=== PATIENT | female | born 1970 | race African-American/Black ===

== ENCOUNTER 2022-08-28 09:34 | Inpatient (IN) ==
[2022-08-28] MEDS ORDERED: ONDANSETRON 4 MG/2 ML VIAL IV STA (11:16)
[2022-08-28] MEDS ORDERED: HYDROmorphone 1 MG/1 ML SYRINGE IV STA (11:16)
[2022-08-28] MEDS ORDERED: SODIUM CHLORIDE 0.9% 1,000 ML IV STA (11:16)
[2022-08-28 11:42] LABS: Basophils % 0.2 % (0.0-0.8); Hematocrit 41.5 VOL% (35.7-47.0); Hemoglobin 13.6 GM/DL (12.0-16.0); Immature Granulocytes % 0.3 %; Immature Granulocytes Absolute 0.06 #; Lymphocytes # 1.9 10*3/uL (1.4-4.0); Lymphocytes % 10.8 % (21.3-54.2); Mean Corpuscular HGB Conc 32.8 GM/DL (32-36); Mean Corpuscular Volume 85.7 FL (87-102); Mean Platelet Volume 11.7 FL (9.6-12.0); Monocytes # 0.9 10*3/uL (0.11-0.8); Monocytes % 4.8 % (1.7-12.7); Neutrophils % 83.9 % (38.7-73.9); Platelet Count 421 T/CUMM (130-400); Red Blood Count 4.84 MC/CUMM (3.8-5.5); Red Cell Distribution Width 16.6 % (9.3-17.3); White Blood Count 17.9 T/CUMM (4-12)
[2022-08-28 13:25] LABS: Albumin 3.1 G/DL (3.4-5.0); Bilirubin,Total 1.5 MG/DL (0.20-1.00); Calcium 8.7 MG/DL (8.5-10.1); Osmolality,Calculated 282.1 MOS/KG (273-304); Potassium 3.2 MMOL/L (3.5-5.1); Total Protein 6.9 G/DL (6.4-8.2)
[2022-08-28] MEDS ORDERED: hydrALAZINE 20 MG/1 ML VIAL IV PRN (15:43)
[2022-08-28] MEDS: MORPHINE 2 MG/1 ML SYRINGE IV PRN (16:30)
[2022-08-28] MEDS: ONDANSETRON 4 MG/2 ML VIAL IV PRN (16:30)
[2022-08-28] MEDS: SODIUM CHLORIDE 0.9% 1,000 ML IV SCH (16:34)
[2022-08-28] MEDS: PIPERACILLIN/TAZOBACTAM 3,375 MG in SODIUM CHLORIDE 0.9% 100 ML IV SCH ×2 (16:35→23:54)
[2022-08-29] MEDS: MORPHINE 2 MG/1 ML SYRINGE IV PRN ×2 (00:07→19:57)
[2022-08-29] MEDS: ONDANSETRON 4 MG/2 ML VIAL IV PRN ×2 (00:10→20:00)
[2022-08-29] MEDS: SODIUM CHLORIDE 0.9% 1,000 ML IV SCH ×3 (01:17→16:02)
[2022-08-29] MEDS: POTASSIUM CHLORIDE RIDER 10 MEQ/100 ML PREMIX IV PRN ×3 (02:30→08:43)
[2022-08-29 05:07] LABS: Basophils % 0.1 % (0.0-0.8); Eosinophils % 0.1 % (0.00-10.9); Hemoglobin 11.5 GM/DL (12.0-16.0); Immature Granulocytes % 0.5 %; Immature Granulocytes Absolute 0.09 #; Lymphocytes % 16.7 % (21.3-54.2); Mean Corpuscular HGB Conc 31.9 GM/DL (32-36); Mean Corpuscular Volume 86.3 FL (87-102); Mean Platelet Volume 9.8 FL (9.6-12.0); Monocytes # 1.3 10*3/uL (0.11-0.8); Monocytes % 7.2 % (1.7-12.7); Neutrophils % 75.4 % (38.7-73.9); Platelet Count 307 T/CUMM (130-400); Red Blood Count 4.17 MC/CUMM (3.8-5.5); White Blood Count 18.2 T/CUMM (4-12)
[2022-08-29 05:50] LABS: Bilirubin,Total 1.1 MG/DL (0.20-1.00); Calcium 8.6 MG/DL (8.5-10.1); Osmolality,Calculated 278.3 MOS/KG (273-304); Potassium 3.4 MMOL/L (3.5-5.1); Risk Ratio 3.74; Thyroid Stimulating Hormone 4.81 uIU/ml (0.358-3.74); Total Protein 6.4 G/DL (6.4-8.2); VLDL Cholesterol 22.4 MG/DL
[2022-08-29] MEDS: PIPERACILLIN/TAZOBACTAM 3,375 MG in SODIUM CHLORIDE 0.9% 100 ML IV SCH ×2 (08:44→16:02)
[2022-08-30] MEDS: PIPERACILLIN/TAZOBACTAM 3,375 MG in SODIUM CHLORIDE 0.9% 100 ML IV SCH ×3 (00:35→15:19)
[2022-08-30] MEDS: SODIUM CHLORIDE 0.9% 1,000 ML IV SCH ×2 (01:37→09:49)
[2022-08-30 05:06] LABS: Basophils % 0.2 % (0.0-0.8); Eosinophils # 0.1 10*3/uL (0.0-0.87); Eosinophils % 0.5 % (0.00-10.9); Hematocrit 32.6 VOL% (35.7-47.0); Hemoglobin 10.2 GM/DL (12.0-16.0); Immature Granulocytes % 0.7 %; Immature Granulocytes Absolute 0.11 #; Lymphocytes # 3.4 10*3/uL (1.4-4.0); Lymphocytes % 20.7 % (21.3-54.2); Mean Corpuscular HGB Conc 31.3 GM/DL (32-36); Mean Corpuscular Volume 87.2 FL (87-102); Mean Platelet Volume 9.8 FL (9.6-12.0); Monocytes # 1.3 10*3/uL (0.11-0.8); Monocytes % 7.8 % (1.7-12.7); Neutrophils % 70.1 % (38.7-73.9); Platelet Count 279 T/CUMM (130-400); Red Blood Count 3.74 MC/CUMM (3.8-5.5); Red Cell Distribution Width 15.8 % (9.3-17.3)
[2022-08-30 05:44] LABS: Albumin 2.6 G/DL (3.4-5.0); Bilirubin,Total 0.8 MG/DL (0.20-1.00); Calcium 8.6 MG/DL (8.5-10.1); Free T4 (Free Thyroxine) 1.05 NG/DL (0.76-1.46); Osmolality,Calculated 277.3 MOS/KG (273-304); Potassium 3.2 MMOL/L (3.5-5.1); Total Protein 6.8 G/DL (6.4-8.2)
[2022-08-30] MEDS ORDERED: LEVOTHYROXINE 25 MCG TABLET PO SCH (06:00)
[2022-08-30 06:33] LABS: Calcium 8.6 MG/DL (8.5-10.1); Osmolality,Calculated 279.1 MOS/KG (273-304); Potassium 3.7 MMOL/L (3.5-5.1)
[2022-08-30] MEDS: amLODIPine 10 MG TABLET PO SCH (09:47)
[2022-08-30] MEDS: LOSARTAN/HCTZ 50-12.5 MG TABLET PO SCH (09:47)
[2022-08-30] MEDS: CHOLECALCIFEROL 1,000 UNIT TABLET PO SCH (09:47)
[2022-08-30] MEDS: MORPHINE 2 MG/1 ML SYRINGE IV PRN (20:58)
[2022-08-31] MEDS: PIPERACILLIN/TAZOBACTAM 3,375 MG in SODIUM CHLORIDE 0.9% 100 ML IV SCH ×4 (00:02→23:19)
[2022-08-31] MEDS: SODIUM CHLORIDE 0.9% 1,000 ML IV SCH ×3 (00:02→23:35)
[2022-08-31] MEDS: LEVOTHYROXINE 50 MCG TABLET PO SCH (05:35)
[2022-08-31 06:13] LABS: Basophils % 0.1 % (0.0-0.8); Eosinophils # 0.2 10*3/uL (0.0-0.87); Eosinophils % 1.4 % (0.00-10.9); Hematocrit 32.3 VOL% (35.7-47.0); Hemoglobin 10.5 GM/DL (12.0-16.0); Immature Granulocytes % 0.4 %; Immature Granulocytes Absolute 0.06 #; Lymphocytes # 3.3 10*3/uL (1.4-4.0); Lymphocytes % 23.5 % (21.3-54.2); Mean Corpuscular HGB Conc 32.5 GM/DL (32-36); Mean Corpuscular Volume 86.8 FL (87-102); Mean Platelet Volume 9.6 FL (9.6-12.0); Monocytes # 1.1 10*3/uL (0.11-0.8); Neutrophils % 66.6 % (38.7-73.9); Platelet Count 282 T/CUMM (130-400); Red Blood Count 3.72 MC/CUMM (3.8-5.5); Red Cell Distribution Width 15.4 % (9.3-17.3); White Blood Count 13.93 T/CUMM (4-12)
[2022-08-31] MEDS ORDERED: INDOMETHACIN SUPP 50 MG SUPP RECTAL ONE (06:40)
[2022-08-31 06:45] LABS: Albumin 2.7 G/DL (3.4-5.0); Bilirubin,Total 0.7 MG/DL (0.20-1.00); Calcium 9.1 MG/DL (8.5-10.1); Osmolality,Calculated 284.7 MOS/KG (273-304); Potassium 3.1 MMOL/L (3.5-5.1); Total Protein 6.9 G/DL (6.4-8.2)
[2022-08-31 07:26] LABS: PT Patient Result 11.1 SECS (10.1-12.1); Partial Thromboplastin Time 29.9 SECS (23.7-32.9)
[2022-08-31] MEDS: amLODIPine 10 MG TABLET PO SCH (10:29)
[2022-08-31] MEDS ORDERED: MIDAZOLAM 2 MG/2 ML VIAL ONE (10:29)
[2022-08-31] MEDS: CHOLECALCIFEROL 1,000 UNIT TABLET PO SCH (10:29)
[2022-08-31] MEDS ORDERED: fentaNYL 100 MCG/2 ML VIAL ONE (10:29)
[2022-08-31] MEDS: LOSARTAN/HCTZ 50-12.5 MG TABLET PO SCH (10:29)
[2022-08-31] MEDS ORDERED: ONDANSETRON 4 MG/2 ML VIAL ONE (10:31)
[2022-08-31] MEDS ORDERED: SUCCINYLCHOLINE 200 MG/10 ML VIAL ONE (10:31)
[2022-08-31] MEDS ORDERED: propofoL 200 MG/20 ML VIAL IV ONE (10:31)
[2022-08-31] MEDS ORDERED: SEVOFLURANE 1 UNIT/15 MINUTE INH ONE (10:31)
[2022-08-31] MEDS ORDERED: ROCURONIUM 50 MG/5 ML VIAL IV ONE (10:31)
[2022-08-31] MEDS ORDERED: LIDOCAINE 2% 5 ML VIAL ONE (10:31)
[2022-08-31] MEDS: LACTATED RINGERS 1,000 ML IV SCH (11:58)
[2022-09-01 04:50] LABS: Basophils % 0.2 % (0.0-0.8); Eosinophils # 0.2 10*3/uL (0.0-0.87); Eosinophils % 1.3 % (0.00-10.9); Immature Granulocytes % 0.5 %; Immature Granulocytes Absolute 0.06 #; Lymphocytes # 3.4 10*3/uL (1.4-4.0); Mean Corpuscular HGB Conc 32.3 GM/DL (32-36); Mean Corpuscular Volume 84.9 FL (87-102); Mean Platelet Volume 9.9 FL (9.6-12.0); Monocytes # 0.9 10*3/uL (0.11-0.8); Platelet Count 302 T/CUMM (130-400); Red Blood Count 3.65 MC/CUMM (3.8-5.5); Red Cell Distribution Width 14.8 % (9.3-17.3); White Blood Count 12.63 T/CUMM (4-12)
[2022-09-01 05:21] LABS: Albumin 2.5 G/DL (3.4-5.0); Bilirubin,Total 0.5 MG/DL (0.20-1.00); Calcium 9.1 MG/DL (8.5-10.1); Osmolality,Calculated 283.8 MOS/KG (273-304); Potassium 3.9 MMOL/L (3.5-5.1); Total Protein 6.7 G/DL (6.4-8.2)
[2022-09-01] MEDS: LEVOTHYROXINE 50 MCG TABLET PO SCH (05:36)
[2022-09-01] MEDS ORDERED: INDOCYANINE GREEN 25 MG VIAL IV ONE (08:11)
[2022-09-01] MEDS: PIPERACILLIN/TAZOBACTAM 3,375 MG in SODIUM CHLORIDE 0.9% 100 ML IV SCH ×3 (09:09→23:09)
[2022-09-01] MEDS: amLODIPine 10 MG TABLET PO SCH (09:18)
[2022-09-01] MEDS: CHOLECALCIFEROL 1,000 UNIT TABLET PO SCH (09:18)
[2022-09-01] MEDS: LOSARTAN/HCTZ 50-12.5 MG TABLET PO SCH (09:18)
[2022-09-01] MEDS: LACTATED RINGERS 1,000 ML IV SCH (09:53)
[2022-09-01] MEDS: SODIUM CHLORIDE 0.9% 1,000 ML IV SCH ×2 (09:53→16:53)
[2022-09-01] MEDS ORDERED: LIDOCAINE 1%/EPI INJ 20 ML VIAL ONE (09:54)
[2022-09-01] MEDS ORDERED: BUPIVACAINE MPF 0.25% 10 ML VIAL ONE (09:54)
[2022-09-01] MEDS ORDERED: TISSUE ADHESIVE 1 EACH APPLICATOR TOP ONE (09:54)
[2022-09-01] MEDS ORDERED: LACTATED RINGERS 1,000 ML IV SCH (10:30)
[2022-09-01] MEDS ORDERED: LIDOCAINE 2% 5 ML VIAL ONE (10:53)
[2022-09-01] MEDS ORDERED: ONDANSETRON 4 MG/2 ML VIAL ONE (10:53)
[2022-09-01] MEDS ORDERED: fentaNYL 100 MCG/2 ML VIAL ONE (10:53)
[2022-09-01] MEDS ORDERED: MIDAZOLAM 2 MG/2 ML VIAL ONE (10:53)
[2022-09-01] MEDS ORDERED: SUCCINYLCHOLINE 200 MG/10 ML VIAL ONE ×2 (10:53→10:54)
[2022-09-01] MEDS ORDERED: propofoL 200 MG/20 ML VIAL IV ONE (10:53)
[2022-09-01] MEDS ORDERED: ROCURONIUM 50 MG/5 ML VIAL IV ONE (10:53)
[2022-09-01] MEDS ORDERED: NEOSTIGMINE 10 MG/10 ML VIAL ONE (11:58)
[2022-09-01] MEDS ORDERED: HYDROmorphone 1 MG/1 ML SYRINGE IV PRN (14:12)
[2022-09-02] MEDS: SODIUM CHLORIDE 0.9% 1,000 ML IV SCH ×3 (01:36→07:17)
[2022-09-02] MEDS: LEVOTHYROXINE 50 MCG TABLET PO SCH (05:56)
[2022-09-02] MEDS: LACTATED RINGERS 1,000 ML IV SCH (07:17)
[2022-09-02 07:39] VITALS: BP 138/75
[2022-09-02 08:14] LABS: Albumin 2.6 G/DL (3.4-5.0); Bilirubin,Total 0.4 MG/DL (0.20-1.00); Potassium 3.1 MMOL/L (3.5-5.1); Total Protein 6.7 G/DL (6.4-8.2)
[2022-09-02] MEDS: amLODIPine 10 MG TABLET PO SCH (08:31)
[2022-09-02] MEDS: CHOLECALCIFEROL 1,000 UNIT TABLET PO SCH (08:31)
[2022-09-02] MEDS: LOSARTAN/HCTZ 50-12.5 MG TABLET PO SCH (08:31)
== END 2022-09-02 10:30 | disposition home or self-care (01) | DRG 418 ==
LOC: N.ED 09:34 → SUATTDRO 15:03 → N.EDINP 15:03 → N.3E 16:47
PROVIDERS: ADMIT Internal Medicine Geriatric Medicine; ATTEND Internal Medicine
PROC: ERCPWSP (ICD-10-PCS; 2022-08-31 13:20)